=== PATIENT | female | born 1985 | race Caucasian/White ===

== ENCOUNTER 2017-10-11 12:58 | Emergency (ER) | payer MEDICAID ==
[2017-10-11 13:06] VITALS: BP 110/74
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
== END 2017-10-11 13:43 | disposition home or self-care (01) ==
LOC: CED 12:58
DX: L08.9 Local infection of the skin and subcutaneous tissue, unspecified (principal)

== ENCOUNTER 2017-12-15 14:25 | Inpatient (IN) | payer MEDICAID ==
[2017-12-15] MEDS ORDERED: NS 1,000 ML IV ONE (14:46)
[2017-12-15] MEDS ORDERED: VANCOMYCIN 1 GM in NS 250 ML IV ONE (14:46)
[2017-12-15] MEDS ORDERED: KETOROLAC 30 MG/1 ML SDV IM ONE (14:59)
--- NOTE | 2017-12-15 15:06 | EDPHY ---
H & P Stated Complaint: left upper arm abscess started 1 week ago from iv drug use Time Seen by Provider: 12/15/17 14:37 HPI/ROS: CHIEF COMPLAINT: Left arm abscess HISTORY OF PRESENT ILLNESS: 32-year-old female with history of any IV drug abuse, prior history of skin abscesses, drug or traces methamphetamines, presents emergency department reporting that she developed an area of redness, swelling, warmth, and pain in the left upper extremity about a week ago. Symptoms have been progressing. Patient also noticed discomfort in her left armpit and redness around her left elbow. She is reporting feeling fevers and chills. No documented temperature. No nausea vomiting. No chest pain, shortness of breath, abdominal pain, lightheadedness, dizziness. REVIEW OF SYSTEMS: A comprehensive 10 system review of systems was reviewed and is otherwise negative aside from elements mentioned in the history of present illness. PAST MEDICAL HISTORY: IVDA, history of epilepsy, on gabapentin and Keppra. Patient states whenever she received IV antibiotics it seems to lower his seizure threshold. SOCIAL HISTORY: Smoker, no alcohol, positive marijuana. Methamphetamine abuse. Denies opiates. VITAL SIGNS Reviewed by me. GENERAL: Well-developed, well-nourished, resting comfortably in no respiratory distress. HEENT: Atraumatic. Eyes: No icterus, no injection. Mouth: Dry mucous membranes. Poor dentition. No erythema or lesions. Neck: supple with no adenopathy. LUNGS: Clear to auscultation bilaterally, no wheezes, rhonchi or rales. CARDIAC: Regular rate and rhythm, no rubs, murmurs or gallops. ABDOMEN: Soft, nontender, nondistended, bowel sounds normal. BACK: No CVA tenderness. EXTREMITIES: No trauma. No edema. Range of motion is normal throughout. NEURO: Alert and oriented, grossly nonfocal. SKIN: Left upper extremity: 20 cm area of erythema extending from the lower humerus, across the antecubital fossa, onto the forearm. Patient also has lymphangitic spread extending to the axilla. Positive lymphadenopathy. In the central area of erythema there is a tense, swollen, 3 cm in diameter abscess. Multiple track angel in both antecubital fossa. PSYCHIATRIC: Normal mentation, no agitation. - Personal History LMP (Females 10-55): Over 28 Days Ago Current Tetanus Diphtheria and Acellular Pertussis (TDAP): Yes Tetanus Vaccine Date: within 10 yrs - Medical/Surgical History Hx Asthma: No Hx Chronic Respiratory Disease: No Hx Diabetes: No Hx Cardiac Disease: No Hx Renal Disease: No Hx Cirrhosis: No Hx Alcoholism: No Hx HIV/AIDS: No Hx Splenectomy or Spleen Trauma: No Other PMH: IV drug user, epilepsy, abscess - Social History Smoking Status: Current every day smoker Constitutional: Initial Vital Signs Temperature (C) 37.0 C 12/15/17 14:30 Heart Rate 76 12/15/17 14:30 Respiratory Rate 18 12/15/17 14:30 Blood Pressure 114/54 L 12/15/17 14:30 O2 Sat (%) 95 12/15/17 14:30 O2 Delivery Mode Room Air Allergies/Adverse Reactions: No Known Allergies Allergy (Unverified 12/15/17 14:29) Home Medications: Medication Instructions Recorded LEVETIRACETAM [Keppra 1000 mg] 3,000 mg PO 06/25/12 Gabapentin 10/11/17 Medical Decision Making ED Course/Re-evaluation: Procedure: Abscess drainage. The patient's abscess was located on the left antecubital fossa. I obtained verbal consent from the patient to drain the abscess who was informed about the possibility of bleeding and pain. The abscess was incised with 15 blade and a moderate amount amount of purulent drainage was expressed. I broke up loculations to the best of my ability but the patient was unable to tolerate extensive probing secondary to discomfort. Small amount of packing was placed. The procedure was performed by myself. Wound culture was sent. 32-year-old female presenting with a antecubital abscess secondary to IV drug use. Patient has evidence of lymphangitic spread. Abscess was I and D. Peripheral IV placement was difficult given the patient's history of IVDA with multiple skin tracks. Patient received Toradol 30 mg IM. 3:40 p.m.: Peripheral IJ was placed under ultrasound guidance by myself. Patient's course was discussed with the hospitalist service. Patient will be admitted to Dr Delmer Sharif. Differential Diagnosis: Differential diagnoses for the patient's symptom complex was considered including but not limited to cellulitis, abscess, necrotizing fasciitis, deep space infection, sepsis. [facility] Medications Given: Discontinued Medications Ketorolac Tromethamine (Toradol) 30 mg IM EDNOW ONE Stop: 12/15/17 15:00 Last Admin: 12/15/17 15:01 Dose: 30 mg Departure - Departure Disposition: [facility] Clinical Impression: Abscess Cellulitis Qualifiers: Site of cellulitis: extremity Site of cellulitis of extremity: upper extremity Laterality: left Qualified Code(s): L03.114 - Cellulitis of left upper limb Condition: Fair Referrals: KEDAR CHEUNG [Other] - As per Instructions
[2017-12-15] MEDS ORDERED: ACETAMINOPHEN 325 MG TAB PO PRN (16:50)
[2017-12-15] MEDS ORDERED: ONDANSETRON DISINTEGRATING 4 MG TAB PO PRN (16:50)
[2017-12-15] MEDS ORDERED: ONDANSETRON 4 MG/2 ML VIAL IVP PRN (16:50)
--- NOTE | 2017-12-15 16:52 | PDGENHP ---
History and Physical - Chief Complaint L arm abscess - History of Present Illness Afia Parrish is a 32 yo F with a PMHx of IVDU, prior history of skin abscesses, drug or traces methamphetamines, who presents to [facility] for LUE infection. She reports that she began experiencing redness, swelling, warmth, and pain in the left upper extremity about a week ago which have been worsening over the past 24 hours. Patient also reports discomfort in her left armpit and erythema around her left elbow. She is reporting intermittent fevers and chills. She denies any chest pain, SOB, d/c, n/v, abdominal pain. History Information - Allergies/Home Medication List Allergies/Adverse Reactions: No Known Allergies Allergy (Unverified 12/15/17 14:29) Home Medications: LEVETIRACETAM [Keppra 1000 mg] 3,000 mg PO 06/25/12 [Last Taken Unknown] Gabapentin 10/11/17 [Last Taken Unknown] I have personally reviewed and updated: family history, medical history, social history, surgical history - Past Medical History Additional medical history: IVDU - Surgical History Reports: no pertinent surgical hx - Family History Negative for: sudden - Social History Smoking Status: Current every day smoker Review of Systems Review of Systems: ROS: 10pt was reviewed & negative except for what was stated in HPI & below Physical Exam Physical Exam: Temp Pulse Resp BP Pulse Ox 37.0 C 64 18 100/63 93 12/15/17 14:30 12/15/17 15:59 12/15/17 15:59 12/15/17 15:59 12/15/17 15:59 Constitutional: no apparent distress Eyes: PERRL Ears, Nose, Mouth, Throat: moist mucous membranes Cardiovascular: regular rate and rhythym Respiratory: no respiratory distress, clear to auscultation Gastrointestinal: soft, non-tender abdomen Genitourinary: no bladder tenderness Skin: erythema, induration Musculoskeletal: pain with ROM Neurologic: AAOx3 Psychiatric: interacting appropriately Lymph, Heme, Immunologic: lymphadenopathy, lymphangitic streaking Lab Data & Imaging Review 12/15/17 15:40 POC Sodium 139 mEq/L (135-145) 12/15/17 15:56 POC Potassium 3.6 mEq/L (3.3-5.0) 12/15/17 15:56 POC Chloride 101.0 mEq/L (97-110) 12/15/17 15:56 POC Total CO2 27 mEq/L (22-31) 12/15/17 15:56 POC BUN 7 mg/dL (7-23) 12/15/17 15:56 POC Creatinine 0.6 mg/dL (0.6-1.0) 12/15/17 15:56 POC Glucose 129 mg/dL (70-100) H 12/15/17 15:56 POC Calcium 9.1 mg/dL (8.5-10.4) 12/15/17 15:56 POC Total Bilirubin 0.6 mg/dL (0.1-1.4) 12/15/17 16:10 POC GGT 9 IU/L (5-65) 12/15/17 16:10 POC AST 28 IU/L (14-46) 12/15/17 16:10 POC ALT 14 IU/L (9-52) 12/15/17 16:10 POC Alk Phosphatase 65 IU/L (38-126) 12/15/17 16:10 POC Total Protein 6.5 g/dL (6.3-8.2) 12/15/17 16:10 POC Albumin 3.4 g/dL (3.5-5.0) L 12/15/17 16:10 POC Amylase 29 IU/L (30-110) L 12/15/17 16:10 Assessment & Plan Assessment: LUE Cellulitis (Acute) - Hx of IVDU - 1 week hx of increased redness swelling with lymphangitic spread - S/p I&D in ED, wound cultures collected - Blood cultures collected, s/p Vancomycin in ED - Will continue Vancomycin pending culture data - If blood cultures positive perform TTE to r/o endocarditis given hx IVDU - Pain control PRN - Ordered wound care s/p I&D Tobacco Abuse - Ordered Nicotine patch Seizure D/o - Continue home Keppra, Gabapentin FEN: PRN Ppx: Lovenox Code: FULL Diet: Regular Dispo: Admit to Medicine, pending clinical course
[2017-12-15 17:18] LABS: PLATELET COUNT 230 10^3/uL (150-400)
[2017-12-15] MEDS ORDERED: oxyCODONE IR 5 MG TAB PO PRN (18:13)
[2017-12-15] MEDS: NICOTINE 21 MG/24 HR PATCH TD SCH (18:43)
[2017-12-15] MEDS: levETIRAcetam 500 MG TAB PO SCH (21:13)
[2017-12-15] MEDS: GABAPENTIN 300 MG CAP PO SCH (21:14)
[2017-12-16] MEDS: VANCOMYCIN 1 GM in NS 250 ML IV SCH ×2 (02:25→14:48)
[2017-12-16] MEDS: ENOXAPARIN 40 MG/0.4 ML SYR SC SCH (07:23)
[2017-12-16] MEDS: GABAPENTIN 300 MG CAP PO SCH ×3 (07:24→21:15)
[2017-12-16] MEDS: levETIRAcetam 500 MG TAB PO SCH ×2 (07:24→21:15)
[2017-12-16] MEDS: NICOTINE 21 MG/24 HR PATCH TD SCH (07:26)
--- NOTE | 2017-12-16 08:23 | HOSPPROG ---
Hospitalist Progress Note Assessment/Plan: #SARINA abscess/cellulitis: s/p I&D in ER, but still with induration. Plan for I&D in morning. NPO at NE, hold lovenox. Discussed with Dr. Lewsi' team #Polysubstance abuse: relapsed after year of being sober. Counseled on cessation , nicotine patch #Acute pain: Toradol, oxycodone #Diet: regular #DVT ppx: Lovenox held for surgery #Disp: inpatient admission for IV abx, surgical I&D Subjective: pain in arm is better, but still swollen Objective: Vital Signs Temp Pulse Resp BP Pulse Ox 36.6 C 64 16 95/60 L 94 12/16/17 08:00 12/16/17 08:00 12/16/17 08:00 12/16/17 08:00 12/16/17 08:00 Laboratory Results 12/16/17 04:45 12/16/17 04:45 12/15/17 12/16/17 12/17/17 05:59 05:59 05:59 Intake Total 1250 Balance 1250 - Time Spent With Patient Time Spent with Patient: greater than 35 minutes Time Spent with Patient: Greater than 35 minutes spent on this patients care, greater than 50% of time spent counseling, educating, and coordinating care regarding the above mentioned plan. - Physical Exam Constitutional: uncomfortable, other (tearful) Ears, Nose, Mouth, Throat: moist mucous membranes Cardiovascular: regular rate and rhythym Respiratory: no respiratory distress Gastrointestinal: normoactive bowel sounds Genitourinary: no bladder fullness Skin: warm Musculoskeletal: other (left antecubital abscess, warm, red and TTP, indurated with surrounding cellulitis. Wound packing in place) Neurologic: AAOx3, CN II-XII Intact Psychiatric: anxious ICD10 Worksheet Patient Problems: Problems Problem Status Onset Abscess Acute Cellulitis Acute
--- NOTE | 2017-12-16 09:26 | PDMN ---
Medical Necessity Medical necessity: MCG M70 Cellulitis: 32 yo w/ LUE acute cellulitis w/ abscess , I&D performed in ED, started on IV vanco, BC pending, wound cx gram stain +, if BC + will perform TTE to r/o endocarditis, anticipate>2MN for ongoing IV antibx, monitoring and treatment. hx IVDU, skin abscesses, meth use
--- NOTE | 2017-12-16 10:32 | ASMTCASEMG ---
Living Arrangements What is your living Answers: Alone arrangement? Who do you live with? Type Of Residence What kind of residence do Answers: House you live in? Discharge Plan Comments Coordination Status Comments Notes: Pt is a 32 y/o female admitted for left arm abscess. Pt with prior hx of drug or traces of meth. Blood cultures have been taken. Wound care is involved. Needs are TBD at this time. CM to follow. Plan: TBD Date Signed: 12/16/2017 10:32 AM Electronically Signed By:SHERRI Dodge
[2017-12-16] MEDS: KETOROLAC 30 MG/1 ML SDV IVP PRN ×2 (12:45→21:22)
[2017-12-16] MEDS: oxyCODONE IR 5 MG TAB PO PRN ×2 (12:45→21:52)
--- NOTE | 2017-12-16 14:55 | GCON ---
GENERAL SURGERY CONSULTATION REASON FOR CONSULTATION: Residual left arm abscess. HISTORY OF PRESENT ILLNESS: The patient is a 32-year-old female with a past medical history of both epilepsy and IV drug use, who was reportedly clean but suffered an apparent relapse and presented to the ED for a left upper extremity injection infection. She underwent incision and drainage in the emergency department. So far, cultures are showing 2+ gram-positive cocci, and blood cultures are pending. She is currently receiving vancomycin. She denies fevers or chills and has a normal white blood cell count. The pain is somewhat improved, but not significantly. PAST MEDICAL HISTORY: Includes epilepsy, anxiety and depression. PAST SURGICAL HISTORY: Includes section and wisdom teeth extraction. MEDICATIONS: Include gabapentin and Keppra. ALLERGIES: No known drug allergies. SOCIAL HISTORY: The patient lives in [place] alone, and her father lives about a mile away. She is a tobacco smoker. REVIEW OF SYSTEMS: Negative aside from that in the HPI and past medical history. PHYSICAL EXAMINATION: VITAL SIGNS: Temperature 36.6, oxygenation 94% on room air, respiratory rate 16, heart rate 64, blood pressure 95/60. GENERAL: Exam reveals a slender 32-year-old female, comfortable eating lunch, but tearful with exam. HEENT: Normocephalic, atraumatic. CHEST: Clear to auscultation bilaterally. CARDIAC: Regular rate and rhythm. ABDOMEN: Soft, nontender. EXTREMITIES: Left upper arm just proximal from the antecubital space is an indurated, erythematous area with a sub-centimeter incision. I am able to probe the wound about 1 cm, but the induration and erythema extend about 3 cm further up the arm. No lymphangitis. IMPRESSION: This is a 32-year-old female with a drug injection abscess, needing further incision and drainage. PLAN: We discussed bedside versus OR drainage. The patient is quite tender and tearful and requests operating room drainage. She has just eaten lunch, so we will set this up for tomorrow as an add-on. We will make her n.p.o. after midnight and hold her Lovenox. Risks and options were discussed, and she will also be seen by Dr. Lewis. /[id number]/MODL MTDD
--- NOTE | 2017-12-16 15:02 | WOCRNPDOC ---
[facility] Advanced Assessment Note - Skin Integrity Problem, Advanced Assess Left Anterior Arm Surgical Wound/Incision Dressing Type: Gauze, Kerlix, Plain Packing Dressing Description: Intact, Shadowed Closure Description: Not Approximated Exudate Amount: Moderate Exudate Color: Reddish/Yellow Exudate Characteristic(s): Serosanguinous Integumentary Issue Intervention: Dressing Changed [place] Wound Tissue: Erythema, Swollen, Indurated, Painful/Tender [place] Wound Swelling: Severe Wound Bed Color: Red Site Measurement - Head-to-Toe Length X Width X Depth (cm): 0.6x0.4x1 Skin Integrity Problem Comment: Patient has history of IV drug use. Packing had partially adhered to wound bed. Normal saline applied to packing, then packing gently removed. Wound bed cleaned with normal saline. Patient stated wound is very painful. Plain packing lightly moistened with normal saline and placed in wound bed. Allevyn life placed over packing. Education provided to patient re: BID dressing changes and pain management. Discussed patient care with CHERRY Long, who agreed that ice pack appropriate for helping with pain. Dr. Richardson entered room at end of dressing change, explained that follow up with surgery might be necessary for complete removal of abscess. Wound care will round again later this week.
[2017-12-16] MEDS: PATCH REMOVAL 1 EA PATCH TD SCH (22:14)
[2017-12-17] MEDS: VANCOMYCIN 1 GM in NS 250 ML IV SCH (03:38)
[2017-12-17] MEDS: KETOROLAC 30 MG/1 ML SDV IVP PRN ×3 (05:07→20:17)
[2017-12-17] MEDS ORDERED: LORazepam 0.5 MG TAB PO ONE (05:37)
[2017-12-17] MEDS ORDERED: LR 1,000 ML IV ONE (08:10)
--- NOTE | 2017-12-17 08:11 | SOAPPROG ---
SOAP Progress Note Assessment/Plan: Assessment/Plan: 32 Y F c antecubital abscess. To OR today for I&D. Seen with Dr. Lewis. Risks and options discussed. Reviewed consent. On scheduled abx. Lovenox held. She requests to proceed. S: still painful. elbow and armpit also sore O: alert, nad no wob rrr ext LUE +induration, +erythema, +swelling 12/17/17 08:05 Objective: Vital Signs Temp Pulse Resp BP Pulse Ox 36.4 C 77 14 100/65 91 L 12/17/17 07:57 12/17/17 07:57 12/17/17 07:57 12/17/17 07:57 12/17/17 07:57 Laboratory Results 12/16/17 04:45 12/16/17 04:45 12/16/17 12/17/17 12/18/17 05:59 05:59 05:59 Intake Total 1250 1500 Balance 1250 1500 ICD10 Worksheet Patient Problems: Problems Problem Status Onset Abscess Acute Cellulitis Acute
--- NOTE | 2017-12-17 08:12 | HOSPPROG ---
Hospitalist Progress Note Assessment/Plan: #MSSA LUE abscess/cellulitis: change to Ancef. To OR for I&D today #Polysubstance abuse: relapsed after year of being sober. Counseled on cessation , nicotine patch. Has good family support, but would like info for support groups #Acute pain: Toradol, oxycodone #Diet: regular #DVT ppx: Lovenox held for surgery #Disp: inpatient admission for IV abx, surgical I&D Subjective: pain improved after I & D Objective: Vital Signs Temp Pulse Resp BP Pulse Ox 36.4 C 77 14 100/65 91 L 12/17/17 07:57 12/17/17 07:57 12/17/17 07:57 12/17/17 07:57 12/17/17 07:57 Laboratory Results 12/16/17 04:45 12/16/17 04:45 12/16/17 12/17/17 12/18/17 05:59 05:59 05:59 Intake Total 1250 1500 Balance 1250 1500 - Time Spent With Patient Time Spent with Patient: greater than 35 minutes Time Spent with Patient: Greater than 35 minutes spent on this patients care, greater than 50% of time spent counseling, educating, and coordinating care regarding the above mentioned plan. - Physical Exam Constitutional: no apparent distress Eyes: PERRL Ears, Nose, Mouth, Throat: moist mucous membranes Cardiovascular: regular rate and rhythym, No no murmur, rub, or gallop Respiratory: no respiratory distress Gastrointestinal: normoactive bowel sounds Genitourinary: no bladder fullness Musculoskeletal: other (left arm incision site dressed, CDI) Neurologic: AAOx3, CN II-XII Intact Psychiatric: interacting appropriately ICD10 Worksheet Patient Problems: Problems Problem Status Onset Abscess Acute Cellulitis Acute
--- NOTE | 2017-12-17 08:15 | SOAPPROG ---
SOAP Progress Note Assessment/Plan: Assessment: wound better/ afebrile/ still fluctuant risks and options fully discussed Plan:i&d today 12/17/17 08:13 Objective: Vital Signs Temp Pulse Resp BP Pulse Ox 36.4 C 77 14 100/65 91 L 12/17/17 07:57 12/17/17 07:57 12/17/17 07:57 12/17/17 07:57 12/17/17 07:57 Laboratory Results 12/16/17 04:45 12/16/17 04:45 12/16/17 12/17/17 12/18/17 05:59 05:59 05:59 Intake Total 1250 1500 Balance 1250 1500 ICD10 Worksheet Patient Problems: Problems Problem Status Onset Abscess Acute Cellulitis Acute
[2017-12-17] MEDS ORDERED: BUPIVACAINE 0.5% 30 ML SDV ONE (08:39)
[2017-12-17] MEDS: levETIRAcetam 500 MG TAB PO SCH ×2 (09:04→20:08)
[2017-12-17] MEDS ORDERED: PROPOFOL/EMULSION 500 MG/50 ML BOTTLE IV ONE (09:54)
[2017-12-17] MEDS ORDERED: MIDAZOLAM 2 MG/2 ML VIAL ONE (09:54)
[2017-12-17] MEDS ORDERED: fentaNYL 100 MCG/2 ML INJ ONE (09:54)
[2017-12-17] MEDS ORDERED: NALOXONE HCL 0.4 MG/ML INJ IVP PRN (10:26)
[2017-12-17] MEDS ORDERED: fentaNYL 100 MCG/2 ML INJ IVP PRN (10:26)
[2017-12-17] MEDS ORDERED: ONDANSETRON 4 MG/2 ML VIAL IVP PRN (10:26)
[2017-12-17] MEDS ORDERED: LR 500 ML IV PRN (10:26)
[2017-12-17] MEDS ORDERED: ALBUTEROL 3 ML DEYVIAL IH PRN (10:26)
--- NOTE | 2017-12-17 10:26 | PDANEPAE ---
ANE Past Medical History - Pulmonary History Hx Oxygen in Use at Home: No Hx Sleep Apnea: No Sleep Apnea Screening Result - Last Documented: Negative - Endocrine History Hx Diabetes: No ANE Review of Systems Review of Systems: ANE Patient History - Allergies Allergies/Adverse Reactions: No Known Allergies Allergy (Unverified 12/15/17 14:29) - Home Medications Home Medications: Gabapentin [Neurontin 300 MG (*)] 1,200 mg PO TID 12/15/17 [Last Taken 12/15/17 09:00] LEVETIRACETAM [Keppra 1000 mg] 2,000 mg PO Q12 12/15/17 [Last Taken 12/15/17 09: 00] - NPO status NPO Since - Liquids (Date): 12/17/17 NPO Since - Liquids (Time): 00:00 NPO Since - Solids (Date): 12/17/17 NPO Since - Solids (Time): 00:00 - Smoking Hx Smoking Status: Current every day smoker ANE Labs/Vital Signs - Labs Result Diagrams: 12/16/17 04:45 12/16/17 04:45 - Vital Signs Blood Pressure: 102/58 Heart Rate: 64 Respiratory Rate: 18 O2 Sat (%): 98 Height: 154.9 cm Weight: 47.62 kg ANE Physical Exam - Airway Neck exam: FROM Mallampati Score: Class 1 Mouth exam: normal dental/mouth exam - Pulmonary Pulmonary: no respiratory distress, no rales or rhonchi, clear to auscultation - Cardiovascular Cardiovascular: regular rate and rhythym, no murmur, rub, or gallop - ASA Status ASA Status: III ANE Anesthesia Plan Anesthesia Plan: GA w LMA
--- NOTE | 2017-12-17 11:34 | GOP ---
DATE OF OPERATION: 12/17/2017 SURGEON: Lavelle Lewis MD ANESTHESIOLOGIST: Dr. Hunt. PREOPERATIVE DIAGNOSIS: Left arm abscess. POSTOPERATIVE DIAGNOSIS: Left arm abscess. PROCEDURE PERFORMED: Incision and drainage and debridement of the left arm abscess pocket. FINDINGS: The patient has marked induration and necrotic fat tissue with minimal volume of purulent material. DESCRIPTION OF PROCEDURE: The patient was taken to the operating room where she received satisfactor y general endotracheal anesthesia by Dr. Hunt, placed in supine position with the left arm outstret ched on arm board, prepped and draped in usual sterile fashion. A longitudinal incision was made thr ough the indurated fluctuant area. Abscess cavity was entered. Minimal amount of purulent material was encountered. The petty of the abscess were radically debrided of necrotic tissue and curetted aw ay down to the muscle fascia. Hemostasis was assured. The wound was packed with iodoform gauze and infiltrated with 0.5% Marcaine. She tolerated the procedure well, taken to the recovery room in good condition. No complications. /[id number]/MODL
--- NOTE | 2017-12-17 11:46 | POSTANESTH ---
Post Anesthetic Evaluation Cardiovascular Status: Normal, Stable, Similar to Pre-Op Cond Respiratory Status: Normal, Stable, Similar to Pre-op Cond. Level of Consciousness/Mental Status: Moderately Sleepy Pain Control: Adequate, Prn Tx Ordered Nausea/Vomiting Control: Adequate, Prn Tx Ordered Complications Possibly Related to Anesthesia: None Noted
--- NOTE | 2017-12-17 12:17 | POSTOPPROG ---
Post Op Note Date of Operation: 12/17/17 Surgeon: Lavelle Lewis Anesthesiologist: peter Anesthesia: GET(General Endotracheal) Pre-op Diagnosis: left arm abscess Post-op Diagnosis: same Indication: infection Procedure: i&d and debridement left arm abscess Findings: necrotic abscess Inf/Abcess present in the surg proc area at time of surgery?: Yes Depth: Deep Incisional (Fascial) EBL: Minimal Complications: 0
[2017-12-17] MEDS: GABAPENTIN 300 MG CAP PO SCH ×2 (12:47→20:10)
[2017-12-17] MEDS: oxyCODONE IR 5 MG TAB PO PRN ×3 (12:48→22:27)
[2017-12-17] MEDS: ceFAZolin 2 GM/DEXTROSE 100 ML IV SCH ×3 (13:50→22:26)
--- NOTE | 2017-12-17 14:43 | ASMTCMCOM ---
CM Note CM Note Notes: Pts case discussed w/ Dr. Richardson. CM provided pt w/ NA schedule. Pt has a supportive Dad and sister. Pt will most likely transition to oral antibiotics before discharging. CM available for changes. Plan: Independent Date Signed: 12/17/2017 02:43 PM Electronically Signed By:SHERRI Dodge
[2017-12-17] MEDS: NICOTINE 21 MG/24 HR PATCH TD SCH (14:53)
[2017-12-17] MEDS ORDERED: LORazepam 1 MG TAB PO ONE (16:30)
[2017-12-17] MEDS: PATCH REMOVAL 1 EA PATCH TD SCH (23:17)
[2017-12-18] MEDS: GABAPENTIN 300 MG CAP PO SCH ×2 (00:27→07:36)
[2017-12-18] MEDS: oxyCODONE IR 5 MG TAB PO PRN ×2 (02:32→07:42)
[2017-12-18] MEDS: KETOROLAC 30 MG/1 ML SDV IVP PRN ×2 (02:39→09:43)
[2017-12-18] MEDS ORDERED: MAGNESIUM HYDROXIDE 30 ML UDCUP PO PRN (03:47)
[2017-12-18] MEDS ORDERED: POLYETHYLENE GLYCOL 3350 17 GM PKT PO PRN (03:47)
[2017-12-18] MEDS ORDERED: LACTULOSE 20 GM/30 ML UDCUP PO PRN (03:47)
[2017-12-18] MEDS ORDERED: BISACODYL 10 MG SUPP PR PRN (03:47)
[2017-12-18] MEDS: ceFAZolin 2 GM/DEXTROSE 100 ML IV SCH (05:35)
[2017-12-18] MEDS: SENNOSIDES/DOCUSATE SODIUM TAB PO SCH ×2 (05:36→07:35)
[2017-12-18] MEDS: levETIRAcetam 500 MG TAB PO SCH (07:36)
[2017-12-18] MEDS: NICOTINE 21 MG/24 HR PATCH TD SCH (07:37)
[2017-12-18] MEDS: ENOXAPARIN 40 MG/0.4 ML SYR SC SCH (07:38)
[2017-12-18 08:15] VITALS: BP 101/65
--- NOTE | 2017-12-18 10:17 | SOAPPROG ---
SOAP Progress Note Assessment/Plan: Assessment: 32 y/o F s/p LUE ac fossa abscess I&D POD #1 S: C/o pain. Tearful with packing/dressing change. Did get 10mg oxycodone an hour prior to dressing change. O: Alert Afebrile RRR No increased WOB Skin: LUE ac fossa abscess site appears clean with healthy granulation tissue. Mild surrounding erythema and induration, but much improved from prior to surgery. Wound repacked and dressed. Plan: Continue local wound care. Pt can go from surgery standpoint. Will need daily to qod packing and dressing changes. She can come to our office as an outpatient for these. 12/18/17 10:14 Objective: Vital Signs Temp Pulse Resp BP Pulse Ox 36.4 C 56 L 16 101/65 100 12/18/17 08:00 12/18/17 08:00 12/18/17 08:00 12/18/17 08:00 12/18/17 08:00 Microbiology 12/17/17 10:25 Gram Stain - Final Arm - Eswab Laboratory Results 12/16/17 04:45 12/16/17 04:45 12/17/17 12/18/17 12/19/17 05:59 05:59 05:59 Intake Total 1500 2635 Output Total 0 Balance 1500 2635 ICD10 Worksheet Patient Problems: Problems Problem Status Onset Abscess Acute Cellulitis Acute
--- NOTE | 2017-12-18 12:08 | ASMTLACE ---
ANTHONY Length of stay for Answers: 2 days current admission Acuity / Level of Answers: Yes Care: Did the patient have an inpatient admission? Comorbidities - select Answers: Other Notes: Hx of epilepsy all that apply # of Emergency department Answers: 1-2 visits in the last 6 months Social determinants Answers: History of substance abuse (ETOH, street drugs, prescription drugs, etc.) Score: 10 Date Signed: 12/18/2017 12:07 PM Electronically Signed By:Doris Zendejas RN
--- NOTE | 2017-12-18 12:11 | ASMTCMCOM ---
CM Note CM Note Notes: Spoke w/pt, gave her resources regarding substance abuse ie. support groups and therapist. Pt appreciative but had no other questions. DC Plan: Independent Date Signed: 12/18/2017 12:11 PM Electronically Signed By:Doris Zendejas RN
--- NOTE | 2017-12-18 12:30 | GDS ---
DISCHARGE DIAGNOSES: 1. Left upper extremity antecubital fossa abscess, cellulitis. 2. Intravenous drug use. 3. Tobacco abuse. 4. Acute arm pain. 5. Seizure disorder. CONSULTATIONS: Surgery. PROCEDURES: I and D of abscess. HISTORY OF PRESENT ILLNESS: A 32-year-old female with history of IV drug use, who has been clean for 1 year, relapsed 10 days ago after her boyfriend was jailed. Said she developed swelling, redness and pain in her left antecubital fossa a week prior to admission. Has had intermittent fevers and chills. No nausea, vomiting, or diarrhea. HOSPITAL COURSE BY PROBLEM: 1. Left upper extremity antecubital fossa abscess and cellulitis: Secondary to IV drug use. Cultures positive with MSSA. Status post I and D in the ER and subsequent surgical I and D. She was treated with vancomycin initially, which was narrowed to Ancef, and will be discharged on Keflex for a total of 7 days antibiotics. She is to follow up with wound care. She was provide instructions for this at home. 2. Polysubstance abuse: relapsed on heroin this week after her boyfriend was jailed. Provided info for support groups. Counseled on cessation. 3. Seizure disorder: Keppra and gabapentin. 4. Pain: P.r.n. Advil and Tylenol. DISPOSITION: Stable for discharge home. MEDS: Keflex PHYSICAL EXAM: VITAL SIGNS: Temperature 36.4, blood pressure 101/64, heart rate in the 50s, respirations 16, 100% on room air. GENERAL: She is tired, but no acute distress. HEENT: PERRLA. Moist mucous membranes. CV: Regular rate and rhythm. LUNGS: Clear. ABDOMEN: Soft, nontender, nondistended. Positive bowel sounds. : No Mcknight. MUSCULOSKELETAL: Left upper extremity is dressed, clean, dry and intact. Packing in place. NEURO: 2 through 12 intact. PSYCH: Alert and orient x3. Time spent on discharge: Greater than 30 minutes. Plan was discussed with patient, nurse and the patient's stepmom. /[id number]/MODL MTDD
== END 2017-12-18 12:40 | disposition home or self-care (01) | DRG 364 ==
LOC: CED 14:25 → CEDHOLD 16:09 → OBSVTOIN 16:51 → F3E 17:46
PROVIDERS: ADMIT Internal Medicine; ATTEND Internal Medicine
PROC: 0JDF0ZZ Extraction of Left Upper Arm Subcutaneous Tissue and Fascia, Open Approach (ICD-10-PCS; principal; 2017-12-15)
PROC: 0J9F0ZZ Drainage of Left Upper Arm Subcutaneous Tissue and Fascia, Open Approach (ICD-10-PCS; principal; 2017-12-15)
DX: L02.414 Cutaneous abscess of left upper limb (principal); F19.10 Other psychoactive substance abuse, uncomplicated; G40.909 Epilepsy, unspecified, not intractable, without status epilepticus; R59.0 Localized enlarged lymph nodes; F41.9 Anxiety disorder, unspecified; F32.9 Major depressive disorder, single episode, unspecified; Z72.0 Tobacco use
CPT/HCPCS: 80048-PO; 80076-PO; 82150-PO; 96365; J0690; J1650; J1885; J2250; J2704; J3010; J3370